=== PATIENT | male | born 1955 | race African-American/Black ===

== ENCOUNTER 2016-10-23 10:57 | Observation (INO) | payer OTHER ==
[2016-10-23] MEDS ORDERED: NITROGLYCERIN OINT 1 INCH/GM PACKET TOPICAL STA (11:00)
[2016-10-23] MEDS ORDERED: NITROGLYCERIN SL TABS 0.4 MG TAB SUBLINGUAL STA (11:00)
[2016-10-23] MEDS ORDERED: LORazepam 2 MG/ML SYRINGE IV STA (11:03)
--- NOTE | 2016-10-23 11:03 | ED ---
General Adult HPI - General Stated complaint: Chest Pain Time Seen by Provider: 10/23/16 10:57 Source: RN notes reviewed - History of Present Illness Initial comments: This is a 61-year-old male who presents to the emergency department with past medical history significant for an WI as well as high blood pressure and high cholesterol. Patient denies smoking. Patient states he does smoke marijuana however. Patient comes in today stating he has been vomiting since but this morning he started having chest pain which radiates across the left side of his chest and he short of breath. Patient states she still is nauseated. Patient denies any diarrhea Patient denies fever or cough. Patient states he's had no headache denies numbness weakness patient denies any lightheadedness dizziness or near syncopal episode - Related Data Home Medications Medication Instructions Recorded Confirmed Albuterol Sulfate [Proventil Hfa] 1 - 2 puff INHALATION RT-QID PRN 10/23/1609/10 Ascorbic Acid [Vitamin C] 500 mg PO DAILY 10/23/16 10/23/16 Ibuprofen [Motrin] 600 mg PO Q6HR PRN 10/23/16 10/23/16 Multivitamins, Thera [Multivitamin] 1 tab PO DAILY 10/23/16 10/23/16 Allergies Allergy/AdvReac Type Severity Reaction Status Date / Time aspirin Allergy Rash/Hives Verified 10/23/16 11:57 Review of Systems ROS Statement: Those systems with pertinent positive or pertinent negative responses have been documented in the HPI. ROS Other: All systems not noted in ROS Statement are negative. General Exam - General Exam Comments Initial Comments: GENERAL: Patient is well-developed and well-nourished. Patient is nontoxic and well- hydrated and is in mild distress. ENT: Neck is soft and supple. No significant lymphadenopathy is noted. Oropharynx is clear. Moist mucous membranes. Neck has full range of motion without eliciting any pain. EYES: The sclera were anicteric and conjunctiva were pink and moist. Extraocular movements were intact and pupils were equal round and reactive to light. Eyelids were unremarkable. PULMONARY: Unlabored respirations. Good breath sounds bilaterally. No audible rales rhonchi or wheezing was noted. CARDIOVASCULAR: There is a regular rate and rhythm without any murmurs gallops or rubs. ABDOMEN: Soft and nontender with normal bowel sounds. No palpable organomegaly was noted. There is no palpable pulsatile mass. SKIN: Skin is clear with no lesions or rashes and otherwise unremarkable. NEUROLOGIC: Patient is alert and oriented x3. Cranial nerves II through XII are grossly intact. Motor and sensory are also intact. Normal speech, volume and content. Symmetrical smile. MUSCULOSKELETAL: Normal extremities with adequate strength and full range of motion. No lower extremity swelling or edema. No calf tenderness. LYMPHATICS: No significant lymphadenopathy is noted PSYCHIATRIC: Normal psychiatric evaluation. Normal interpersonal interactions appears functionally intact in deals appropriately with others. Patient is very anxious Course Vital Signs 10/23/16 10/23/16 10/23/16 11:20 12:18 13:09 Temperature 99.1 F 97.7 F 98.6 F Pulse Rate 98 102 H 94 Respiratory 34 H 20 20 Rate Blood Pressure 159/92 118/66 110/72 O2 Sat by Pulse 100 98 97 Oximetry Medical Decision Making - Medical Decision Making EKG shows sinus tachycardia at 113 bpm NH interval is 130 QRS 78 QT interval 342 QTC is 469. Patient's EKG shows no ST segment elevation or depression or T- wave abdomen is noted. Chest x-ray is normal. Patient states his pain is relieved and he feels considerably better. Because the patient's risk factors and previous WI and the fact that this seemed similar to his previous WI. I started the patient heparin. I admitted the patient. I spoke with Dr. Franco he agreed to admit the patient I wrote admitting orders. I consult cardiology. - Lab Data Result diagrams: 10/23/16 11:28 10/23/16 11:28 Lab Results 10/23/16 10/23/16 10/23/16 Range/Units 11:28 11:28 11:28 WBC (3.8-10.6) k/uL RBC (4.30-5.90) m/uL Hgb (13.0-17.5) gm/dL Hct (39.0-53.0) % MCV (80.0-100.0) fL MCH (25.0-35.0) pg MCHC (31.0-37.0) g/dL RDW (11.5-15.5) % Plt Count (150-450) k/uL Neutrophils % % Lymphocytes % % Monocytes % % Eosinophils % % Basophils % % Neutrophils # (1.3-7.7) k/uL Lymphocytes # (1.0-4.8) k/uL Monocytes # (0-1.0) k/uL Eosinophils # (0-0.7) k/uL Basophils # (0-0.2) k/uL Hypochromasia PT 10.7 (9.0-12.0) sec INR 1.1 (<1.1) APTT 23.7 (22.0-30.0) sec Sodium 141 (137-145) mmol/L Potassium 4.1 (3.5-5.1) mmol/L Chloride 102 (98-107) mmol/L Carbon Dioxide 19 L (22-30) mmol/L Anion Gap 20 mmol/L BUN 23 H (9-20) mg/dL Creatinine 2.12 H (0.66-1.25) mg/dL Est GFR (MDRD) Af Amer 38 (>60 ml/min/1.73 sqM) Est GFR (MDRD) Non-Af 32 (>60 ml/min/1.73 sqM) Glucose 133 H (74-99) mg/dL Calcium 9.4 (8.4-10.2) mg/dL Magnesium 2.1 (1.6-2.3) mg/dL Total Bilirubin 0.8 (0.2-1.3) mg/dL AST 57 (17-59) U/L ALT 44 (21-72) U/L Alkaline Phosphatase 78 (38-126) U/L Total Creatine Kinase 1219 H (55-170) U/L CK-MB (CK-2) 2.4 (0.0-2.4) ng/mL CK-MB (CK-2) Rel Index 0.2 Troponin I 0.023 (0.000-0.034) ng/mL Total Protein 8.1 (6.3-8.2) g/dL Albumin 4.5 (3.5-5.0) g/dL 10/23/16 Range/Units 11:28 WBC 8.0 (3.8-10.6) k/uL RBC 5.68 (4.30-5.90) m/uL Hgb 13.6 (13.0-17.5) gm/dL Hct 44.2 (39.0-53.0) % MCV 77.8 L (80.0-100.0) fL MCH 23.9 L (25.0-35.0) pg MCHC 30.7 L (31.0-37.0) g/dL RDW 15.4 (11.5-15.5) % Plt Count 170 (150-450) k/uL Neutrophils % 43 % Lymphocytes % 48 % Monocytes % 6 % Eosinophils % 0 % Basophils % 0 % Neutrophils # 3.5 (1.3-7.7) k/uL Lymphocytes # 3.8 (1.0-4.8) k/uL Monocytes # 0.5 (0-1.0) k/uL Eosinophils # 0.0 (0-0.7) k/uL Basophils # 0.0 (0-0.2) k/uL Hypochromasia Slight PT (9.0-12.0) sec INR (<1.1) APTT (22.0-30.0) sec Sodium (137-145) mmol/L Potassium (3.5-5.1) mmol/L Chloride (98-107) mmol/L Carbon Dioxide (22-30) mmol/L Anion Gap mmol/L BUN (9-20) mg/dL Creatinine (0.66-1.25) mg/dL Est GFR (MDRD) Af Amer (>60 ml/min/1.73 sqM) Est GFR (MDRD) Non-Af (>60 ml/min/1.73 sqM) Glucose (74-99) mg/dL Calcium (8.4-10.2) mg/dL Magnesium (1.6-2.3) mg/dL Total Bilirubin (0.2-1.3) mg/dL AST (17-59) U/L ALT (21-72) U/L Alkaline Phosphatase (38-126) U/L Total Creatine Kinase (55-170) U/L CK-MB (CK-2) (0.0-2.4) ng/mL CK-MB (CK-2) Rel Index Troponin I (0.000-0.034) ng/mL Total Protein (6.3-8.2) g/dL Albumin (3.5-5.0) g/dL Critical Care Time Critical Care Time: Yes Total Critical Care Time: 35 Disposition Clinical Impression: Unstable angina pectoris, Gastroenteritis Disposition: ADMITTED IP TO THIS HOSP Referrals: None,Stated [Primary Care Provider] - 1-2 days Time of Disposition: 13:25
[2016-10-23 11:34] LABS: Basophils % (A) 0 %; CH 24.1; CHCM 31.2; Eosinophils % (A) 0 %; HCT 44.2 % (39.0-53.0); HDW 2.94; HGB 13.6 gm/dL (13.0-17.5); Hypochromasia Slight; Luc # (Auto) 0.24; Luc % (Auto) 3; Lymphocytes # (A) 3.8 k/uL (1.0-4.8); Lymphocytes % (A) 48 %; MCH 23.9 pg (25.0-35.0); MCHC 30.7 g/dL (31.0-37.0); MCV 77.8 fL (80.0-100.0); Mean Platelet Volume 7.2; Monocytes # (A) 0.5 k/uL (0-1.0); Monocytes % (A) 6 %; Neutrophils # (A) 3.5 k/uL (1.3-7.7); Neutrophils % (A) 43 %; RBC 5.68 m/uL (4.30-5.90); RDW 15.4 % (11.5-15.5); WBC (Perox) 7.94
[2016-10-23 11:45] LABS: Calcium 9.4 mg/dL (8.4-10.2); Magnesium 2.1 mg/dL (1.6-2.3); Potassium 4.1 mmol/L (3.5-5.1); Total Bilirubin 0.8 mg/dL (0.2-1.3); Total Protein 8.1 g/dL (6.3-8.2)
[2016-10-23 11:46] LABS: INR 1.1 (<1.1); Partial Thromboplastin Time 23.7 sec (22.0-30.0); Prothrombin Time 10.7 sec (9.0-12.0)
--- NOTE | 2016-10-23 11:58 | XR ---
EXAMINATION TYPE: XR chest 2V DATE OF EXAM: 10/23/2016 11:53 AM COMPARISON: 02/09/2012 HISTORY: 61-year-old male with chest pain TECHNIQUE: AP and lateral views FINDINGS: Heart appears borderline enlarged, likely somewhat accentuated by low lung volumes. Vascular markings are crowded and probably magnified due to large patient body habitus. There is some patchy right bas ilar opacity. No pleural effusion. IMPRESSION: Hypoventilatory changes and some patchy right basilar atelectasis or early infiltrate.
[2016-10-23 12:11] LABS: Creatine Kinase MB 2.4 ng/mL (0.0-2.4); Troponin I 0.023 ng/mL (0.000-0.034)
[2016-10-23] MEDS ORDERED: HEPARIN SODIUM,PORCINE 5,000 UNIT/ML 1 ML VIAL IV ONE (13:23)
[2016-10-23] MEDS ORDERED: NITROGLYCERIN SL TABS 0.4 MG TAB SUBLINGUAL PRN (13:25)
[2016-10-23] MEDS ORDERED: ONDANSETRON 4 MG/2 ML VIAL IVP PRN (13:26)
[2016-10-23] MEDS ORDERED: HEPARIN SODIUM,PORCINE/D5W PMX 25,000 UNIT in DEXTROSE/WATER 1 500ML.BAG IV SCH (13:30)
[2016-10-23] MEDS ORDERED: SODIUM CHLORIDE 0.9% 1,000 ML IV STA (16:11)
[2016-10-23] MEDS ORDERED: methylPREDNISolone SOD SUCCI 125 MG/2 ML VIAL IV STA (16:11)
--- NOTE | 2016-10-23 16:19 | P.HPIM ---
History of Present Illness H&P Date: 10/23/16 Chief Complaint: Chest pressure 61-year-old gentleman with history of ongoing tobacco use comes in the hospital with acute onset left-sided chest pressure. Patient has not been feeling well for the last 5-6 days with nausea vomiting and watery diarrhea. Patient has also had a cough that has been nonproductive in nature. Patient recently quit smoking 4 days ago. 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 Patient came in to the ER was noted to have sinus tachycardia without any ST elevations. Patient however improved with the nitro patch. Oddly patient states that his pain is exacerbated with movement of his left arm and cough. In the time of examination patient states that his chest pain is almost resolved however pressure on that area down his left fifth rib in the anterior axillary line does bring back pain. Patient was noted to have a creatinine of 2.12 denies having any history of chronic kidney disease. Also noted to have a CK elevation. Review of Systems All systems: negative (Noted in HPI) Past Medical History Past Medical History: Asthma, CVA/TIA, Myocardial Infarction ([place]), Seizure Disorder Additional Past Medical History / Comment(s): last seizure 5 years ago(2011), tia 2013, sinus /seasonal allergies. pt stated his normal wt has been 262/ current wt 237 Last Myocardial Infarction Date:: [id number]" History of Any Multi-Drug Resistant Organisms: None Reported Past Surgical History: Heart Catheterization, Orthopedic Surgery Additional Past Surgical History / Comment(s): sx lazaro eyes d/t chemical klein( 2003), colonoscopy, back sx-fusion, partial amp 2 fingers rt hand(factory machine accident) Additional Past Anesthesia/Blood Transfusion Reaction / Comment(s): clauterphobia Past Psychological History: No Psychological Hx Reported Additional Psychological History / Comment(s): pt's brother 2 days ago ([place]) has some saddness over this but no thoughts of harming self. pt lives with his girl friend, is independant no assitive devices or outside services. works detailing cars. Smoking Status: Former smoker Past Alcohol Use History: Occasional Additional Past Alcohol Use History / Comment(s): started smoking at age 13 smoked 1/2-1 ppd. quit 2 days ago(10-21-16) Past Drug Use History: Marijuana - Past Family History Father Family Medical History: Myocardial Infarction ([place]) Additional Family Medical History / Comment(s): at ge 79-[place] Mother Family Medical History: Myocardial Infarction ([place]) Additional Family Medical History / Comment(s): in her 80's from [place] Brother(s) Family Medical History: Myocardial Infarction ([place]) Additional Family Medical History / Comment(s): 2 weeks ago at age 55 from [place]. had a pacer/aicd Medications and Allergies Home Medications Medication Instructions Recorded Confirmed Type Albuterol Sulfate [Proventil Hfa] 1 - 2 puff INHALATION RT-QID PRN 10/23/1609/10 History Ascorbic Acid [Vitamin C] 500 mg PO DAILY 10/23/16 10/23/16 History Ibuprofen [Motrin] 600 mg PO Q6HR PRN 10/23/16 10/23/16 History Multivitamins, Thera [Multivitamin] 1 tab PO DAILY 10/23/16 10/23/16 History Allergies Allergy/AdvReac Type Severity Reaction Status Date / Time aspirin Allergy Rash/Hives Verified 10/23/16 11:57 Physical Exam Vitals: Vital Signs Temp Pulse Pulse Resp BP BP Pulse Ox 10/23/16 15:15 20 10/23/16 14:45 98.2 F 84 18 136/78 97 10/23/16 14:27 97.9 F 82 20 114/68 95 10/23/16 13:49 98.2 F 81 20 106/68 99 Intake and Output 10/23/16 10/23/16 10/23/16 06:59 14:59 22:59 Other: Voiding Method Toilet Weight 107.6 kg Patient Weight 10/24/16 06:59 Weight 107.6 kg Physical exam Gen. appearance oriented 3 in no distress Neck is supple no JVD Lungs good air entry clear to auscultation no rhonchi or wheezing however does exacerbate coughing Heart S1-S2 heard regular rate and rhythm no murmurs appreciated Reproducible pain in the fifth to sixth intercostal space on the anterior axillary line also exacerbated with rotation of the arm Abdomen is soft nontender no organomegaly bowel sounds are intact Neurologically cranial nerves II-12 grossly intact no focal motor or sensory deficits noted Skin no abnormalities appreciated Results CBC & Chem 7: 10/23/16 11:28 10/23/16 11:28 Assessment and Plan Plan: #1 atypical chest pain likely musculoskeletal however rule out ACS #2 acute kidney injury unknown etiology #3 viral gastroenteritis likely viral prodrome with upper respiratory symptoms as well #4 ongoing tobacco use likely has underlying COPD #5 rhabdomyolysis #6 sinus tachycardia #7 non-anion gap metabolic acidosis Plan A d-dimer will be done. The fluid resuscitation with 75 mL per hour. Patient be given 1 dose of Solu- Medrol 125 mg. Cardiology consultation will be obtained. If patient's heart rate is not fluid responsive a beta jerrica would be appropriate. repeat labs in the a.m. The diarrhea if it's not infectious in nature loperamide can be started.
[2016-10-23] MEDS: NITROGLYCERIN OINT 1 INCH/GM PACKET TOPICAL SCH ×2 (18:01→23:44)
[2016-10-23 18:24] LABS: Creatine Kinase MB 1.9 ng/mL (0.0-2.4); Troponin I 0.015 ng/mL (0.000-0.034)
[2016-10-23] MEDS: ALBUTEROL NEBULIZED 2.5 MG/3 ML INHALATION SCH (20:00)
[2016-10-23 20:35] LABS: Appearance,Urine Clear (Clear); Bacteria,Urine Rare /hpf; Bilirubin,Urine Negative (Negative); Glucose,Urine (UA) Negative (Negative); Ketones,Urine Negative (Negative); Leukocyte Esterase,Urine Negative (Negative); Mucus,Urine Rare /hpf; Nitrite,Urine Negative (Negative); PH, Urine 5.5 (5.0-8.0); Particle Count 2953; Protein,Urine Trace (Negative); RBC,Urine 2 /hpf (0-5); Specific Gravity,Urine 1.012 (1.001-1.035); Squamous Epithelial Cell,Urine <1 /hpf (0-4); UA Billing (MACRO vs. MICRO) MICRO; Urobilinogen,Urine <2.0 mg/dL (<2.0); WBC,Urine 1 /hpf (0-5)
--- NOTE | 2016-10-23 22:49 | CONS ---
DATE OF CONSULTATION: Mr. Herring is a 61-year-old male who does not see a physician on a regular basis who presented with symptoms of chest discomfort. He has been having a cough and dyspnea for the last a few days. Every time he coughs he has chest discomfort. Because of the worsening symptoms, he came into the emergency room and subsequently was admitted. Patient has underwent cardiac catheterization in 2010 that showed no evidence of obstructive coronary artery disease and at that time his left ventricular systolic function revealed a preserved left ventricular size and systolic function. Patient has some palpitation. No syncope. No clear PND, orthopnea. No peripheral edema. He used to smoke on a regular basis and just stopped few days ago. He takes no medication at home. He denies any history of passing of hypertension, hyperlipidemia, or diabetes. Medications at home are none. REVIEW OF SYSTEMS: RESPIRATORY SYSTEM: He has the cough, productive recently. He has dyspnea on exertion. GI system: No recent GI bleeding. No peptic ulcer disease. system: No dysuria or hematuria. Nervous system: Prior history of seizure according to him. SOCIAL HISTORY: Social alcohol intake. Drinks caffeine and smokes as noted. PHYSICAL EXAMINATION: A 61-year-old male, alert, oriented, in no apparent distress. Blood pressure 136/70 with a heart in the 80s. HEAD: Normocephalic. EYES: Sclerae anicteric. NECK: Good upstroke. No bruit. No jugular venous distention. LUNGS: Clear to auscultation. HEART: Regular rate and rhythm. S1, S2, no S3, no rub. ABDOMEN: Soft, nontender, positive bowel sounds. No organomegaly. EXTREMITIES: No edema. Intact distal pulses. Lab data revealed a hemoglobin of 13.6. BUN and creatinine 23 and 2.12. Troponin 0.023 with CK of 1219. EKG revealed a sinus mechanism, rate of 113, left axis deviation. No acute changes. Chest x-ray shows patchy right basilar atelectasis or early infiltrate. IMPRESSION: 1. Chest discomfort, atypical for ischemic heart disease; appears to be musculoskeletal in etiology of related to the lung infection. 2. Renal failure of unknown duration. 3. Chronic tobacco use. RECOMMENDATIONS: From the cardiac standpoint, I will obtain echocardiogram with Doppler. I see no evidence of active ischemic heart disease. If the rest of the enzymes are normal, then no further cardiac work-up will be needed. Thank you for this consult. We will follow with you.
[2016-10-24 00:09] LABS: Creatine Kinase MB 1.8 ng/mL (0.0-2.4); Troponin I 0.015 ng/mL (0.000-0.034)
[2016-10-24 05:58] LABS: Basophils % (A) 1 %; CH 24.1; CHCM 30.6; Eosinophils % (A) 0 %; HCT 40.9 % (39.0-53.0); HDW 2.92; HGB 12.6 gm/dL (13.0-17.5); Hypochromasia Moderate; Luc # (Auto) 0.11; Luc % (Auto) 3; Lymphocytes # (A) 1.3 k/uL (1.0-4.8); Lymphocytes % (A) 35 %; MCH 24.5 pg (25.0-35.0); MCHC 30.9 g/dL (31.0-37.0); MCV 79.4 fL (80.0-100.0); Mean Platelet Volume 7.9; Monocytes # (A) 0.1 k/uL (0-1.0); Monocytes % (A) 3 %; Neutrophils # (A) 2.2 k/uL (1.3-7.7); Neutrophils % (A) 58 %; RBC 5.15 m/uL (4.30-5.90); RDW 15.6 % (11.5-15.5); WBC 3.8 k/uL (3.8-10.6); WBC (Perox) 3.69
[2016-10-24 06:07] LABS: ALT 56 U/L (21-72); AST 50 U/L (17-59); Alkaline Phosphatase 60 U/L (38-126); Anion Gap 12 mmol/L; Bilirubin, Delta 0.2 mg/dL (0.0-0.2); Blood Urea Nitrogen 21 mg/dL (9-20); Calcium 9.4 mg/dL (8.4-10.2); Carbon Dioxide 24 mmol/L (22-30); Chloride 108 mmol/L (98-107); Cholesterol 119 mg/dL (<200); Creatine Kinase 995 U/L (55-170); Glucose 142 mg/dL (74-99); Non-African American GFR(MDRD) >60 (>60 ml/min/1.73 sqM); Potassium 5.3 mmol/L (3.5-5.1); Sodium 144 mmol/L (137-145); Total Bilirubin 0.4 mg/dL (0.2-1.3); Total Protein 7.2 g/dL (6.3-8.2); Triglycerides 89 mg/dL (<150)
[2016-10-24 06:08] LABS: HDL Cholesterol 38 mg/dL (40-60)
[2016-10-24] MEDS: NITROGLYCERIN OINT 1 INCH/GM PACKET TOPICAL SCH (06:20)
[2016-10-24] MEDS: ALBUTEROL NEBULIZED 2.5 MG/3 ML INHALATION SCH ×2 (08:15→12:30)
--- NOTE | 2016-10-24 08:57 | PN ---
Mr. Herring is a 61-year-old male with a history of chronic tobacco use, who presented with symptoms of chest discomfort, worse with deep breathing and coughing. He is feeling better today. His breathing is better. He denies symptoms of chest pain. He denies any dizziness, palpitation. He denies any nausea or vomiting. He continues to be at this time on IV heparin, aspirin. He received methylprednisolone. PHYSICAL EXAMINATION: Blood pressure running in the 150s and 170s with a heart rate in the 80s. Lungs with mild decrease in breath sounds. No wheezes. HEART: Regular rate and rhythm. S1, S2, no S3, no rub. ABDOMEN: Soft, nontender. EXTREMITIES: No edema. Lab data revealed troponin 0.015, cholesterol 119, LDL of 63. BUN and creatinine of 21 and 1.1. Potassium 5.3. Hemoglobin of 12.6. IMPRESSION: 1. Chest discomfort, atypical for ischemic heart disease; appears to be related to upper respiratory infection. 2. Hypertension. 3. Chronic tobacco use. RECOMMENDATION: I will add to his regimen amlodipine 5 mg daily to optimize his blood pressure control. Will review the results of his echocardiogram. From the cardiac standpoint, no further cardiac work-up will be needed at this time. He will follow up on with his primary care physician. Will see him on as-needed basis.
[2016-10-24] MEDS ORDERED: amLODIPine 5 MG TAB PO SCH (09:00)
[2016-10-24] MEDS ORDERED: ASPIRIN 325 MG TAB PO SCH (09:00)
[2016-10-24 11:19] VITALS: BP 153/78; TEMP 98.2
--- NOTE | 2016-10-24 11:36 | ECHOF ---
Referral Reason:cp MEASUREMENTS -------- HEIGHT: 185.4 cm WEIGHT: 107.5 kg BP: 152/77 RVIDd: 3.3 cm (< 3.3) IVSd: 1.3 cm (0.6 - 1.1) LVIDd: 4.9 cm (3.9 - 5.3) LVPWd: 1.3 cm (0.6 - 1.1) IVSs: 1.6 cm LVIDs: 2.8 cm LVPWs: 2.1 cm LA Diam: 3.6 cm (2.7 - 3.8) LAESV Index (A-L): 20.60 ml/m Ao Diam: 3.4 cm (2.0 - 3.7) AV Cusp: 2.0 cm (1.5 - 2.6) MV EXCURSION: 17.007 mm (> 18.000) MV EF SLOPE: 84 mm/s (70 - 150) EPSS: 0.9 cm MV E Alexander: 0.96 m/s MV DecT: 184 ms MV A Alexander: 0.77 m/s MV E/A Ratio: 1.25 FINDINGS -------- Sinus rhythm. This was a technically good study. The left ventricular size is normal. There is mild concentric left ventricular hypertrophy. Overall left ventricular systolic function is normal with, an EF between 60 - 65 %. The right ventricle is mildly enlarged. Normal LA size by volume 22+/-6 ml/m2. The right atrium is normal in size. Aortic valve is trileaflet and is mildly thickened. Mild mitral annular calcification present. The tricuspid valve appears structurally normal. Trace/mild (physiologic) pulmonic regurgitation. The aortic root size is normal. Normal inferior vena cava with normal inspiratory collapse consistent with estimated right atrial pressure of 5 mmHg. There is no pericardial effusion. CONCLUSIONS -------- 1. Sinus rhythm. 2. The tricuspid valve appears structurally normal. 3. Trace/mild (physiologic) pulmonic regurgitation. 4. The aortic root size is normal. 5. Normal inferior vena cava with normal inspiratory collapse consistent with estimated right atrial pressure of 5 mmHg. 6. There is no pericardial effusion. 7. This was a technically good study. 8. The left ventricular size is normal. 9. There is mild concentric left ventricular hypertrophy. 10. Overall left ventricular systolic function is normal with, an EF between 60 - 65 %. 11. The right ventricle is mildly enlarged. 12. Normal LA size by volume 22+/-6 ml/m2. 13. Aortic valve is trileaflet and is mildly thickened. 14. Mild mitral annular calcification present. ELECTRICIAN REFINERY: Myesha Reeves RDCS
[2016-10-24 13:03] VITALS: PULSE 73; RESP 18
--- NOTE | 2016-10-24 15:08 | P.DS ---
Providers Date of admission: 10/23/16 13:26 Attending physician: Sruthi Franco Primary care physician: Stated None Hospital Course: 61-year-old gentleman with history of ongoing tobacco use comes in the hospital with acute onset left-sided chest pressure. Patient has not been feeling well for the last 5-6 days with nausea vomiting and watery diarrhea. Patient has also had a cough that has been nonproductive in nature. Patient recently quit smoking 4 days ago. 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 Patient came in to the ER was noted to have sinus tachycardia without any ST elevations. Patient however improved with the nitro patch. Oddly patient states that his pain is exacerbated with movement of his left arm and cough. In the time of examination patient states that his chest pain is almost resolved however pressure on that area down his left fifth rib in the anterior axillary line does bring back pain. Patient was noted to have a creatinine of 2.12 denies having any history of chronic kidney disease. Also noted to have a CK elevation. Day of discharge Patient denied having any diarrhea. States his breathing is significantly improved. Patient is able to move his arm states that the steroids have helped as chest pain. Patient also underwent cardiac evaluation and was cleared. Neck is supple no JVD Lungs good air entry clear to auscultation no rhonchi or wheezing however does exacerbate coughing Heart S1-S2 heard regular rate and rhythm no murmurs appreciated Reproducible pain in the fifth to sixth intercostal space on the anterior axillary line also exacerbated with rotation of the arm Abdomen is soft nontender no organomegaly bowel sounds are intact Neurologically cranial nerves II-12 grossly intact no focal motor or sensory deficits noted Skin no abnormalities appreciated Assessment and Plan Plan: #1 atypical chest pain likely musculoskeletal however rule out ACS #2 acute kidney injury unknown etiology #3 viral gastroenteritis likely viral prodrome with upper respiratory symptoms as well #4 ongoing tobacco use likely has underlying COPD #5 rhabdomyolysis #6 sinus tachycardia #7 non-anion gap metabolic acidosis #8 new diagnosis of essential hypertension will be started on amlodipine 5 mg. Medrol Dosepak for viral URI. He shouldn't will be referred to a PCP Dr. Clarke Plan - Discharge Summary New Discharge Prescriptions: amLODIPine [Norvasc] 5 mg PO DAILY #30 tab methylPREDNISolone [Medrol Dose Pack] 4 mg PO DIRECTED #1 pack Discharge Medication List Albuterol Sulfate [Proventil Hfa] 1 - 2 puff INHALATION RT-QID PRN 10/23/16 [ History] Ascorbic Acid [Vitamin C] 500 mg PO DAILY 10/23/16 [History] Ibuprofen [Motrin] 600 mg PO Q6HR PRN 10/23/16 [History] Multivitamins, Thera [Multivitamin] 1 tab PO DAILY 10/23/16 [History] amLODIPine [Norvasc] 5 mg PO DAILY #30 tab 10/24/16 [Rx] methylPREDNISolone [Medrol Dose Pack] 4 mg PO DIRECTED #1 pack 10/24/16 [Rx] Follow up Appointment(s)/Referral(s): Gabriela Dave MD [STAFF PHYSICIAN] - 1 Week Jabari Clarke MD [REFERRING] - 1 Week None,Stated [Primary Care Provider] - 1-2 days Discharge Disposition: HOME SELF-CARE
[2016-10-24 15:11] VITALS: BMI 31.3
== END 2016-10-24 16:13 | disposition home or self-care (01) ==
LOC: EC 10:57 → 3OBS 13:26
PROVIDERS: ADMIT Internal Medicine; ATTEND Internal Medicine
DX: R07.89 Other chest pain (principal); N17.9 Acute kidney failure, unspecified; A08.4 Viral intestinal infection, unspecified; E87.2 Acidosis; F12.90 Cannabis use, unspecified, uncomplicated; I10 Essential (primary) hypertension; I25.2 Old myocardial infarction; J45.909 Unspecified asthma, uncomplicated; M62.82 Rhabdomyolysis; Z72.0 Tobacco use; Z86.73 Personal history of transient ischemic attack (TIA), and cerebral infarction without residual deficits; R00.0 Tachycardia, unspecified; M54.9 Dorsalgia, unspecified; J06.9 Acute upper respiratory infection, unspecified; Z79.899 Other long term (current) drug therapy; Z88.6 Allergy status to analgesic agent
CPT/HCPCS: 36415; 94640 ×3; 93005; 93306; 85379; 80061; 80053 ×2; 82248; 83036; 82550 ×2; 82553; 83735; 84484; 85025 ×2; 85610; 85730 ×2; 81001; 80306; 71020; 99291; 96365; 96375; 96376; G0378 ×2; J2060; J1644 ×2; J2930; 96361; 96366

== ENCOUNTER → 2018-02-16 | Outpatient (CLI) | payer OTHER ==
--- NOTE | 2018-02-16 08:27 | US ---
EXAMINATION TYPE: US kidneys/renal and bladder DATE OF EXAM: 02/16/2018 COMPARISON: NONE CLINICAL HISTORY: R10.9 right flank pain. Right flank pain for 1 month EXAM MEASUREMENTS: Right Kidney: 12.4 x 5.2 x 5.8 cm Left Kidney: 10.6 x 5.8 x 4.7 cm Right Kidney: complex anechoic area = 3.8 x 2.9 x 2.8cm appearing to have vascularity Left Kidney: no evidence of hydronephrosis or mass Bladder: appears wnl Bilateral Jets seen: yes IMPRESSION: 1. Complex cyst within the superior pole right kidney with vascularity within the central septation. Additional workup with contrast CT is recommended.
== END | disposition home or self-care (01) ==
LOC: RADUSWWP 07:07
PROVIDERS: ATTEND Internal Medicine
DX: N28.1 Cyst of kidney, acquired (principal)
CPT/HCPCS: 76770

== ENCOUNTER → 2018-02-20 | Outpatient (CLI) | payer OTHER ==
--- NOTE | 2018-02-20 14:50 | CT ---
EXAMINATION TYPE: CT abdomen pelvis wo con DATE OF EXAM: 02/20/2018 HISTORY: Generalized abdominal pain; right flank pain. Abnormal ultrasound. CT DLP: 954.20 mGycm. Automated Exposure Control for Dose Reduction was Utilized. TECHNIQUE: CT scan of the abdomen and pelvis is performed without oral or IV contrast. COMPARISON: CT abdomen and pelvis June 27, 2010. Renal ultrasound from 4 days ago. FINDINGS: Within the limitations of a non-contrast study, the following observations are made. LUNG BASES: There is prominent coronary artery calcification in the LAD distribution is additional mi ld coronary artery calcification in the left circumflex and RCA distribution. LIVER/GB: Liver is diffusely low dense consistent with fatty infiltration which correlates with recen t ultrasound showing heterogeneous hyperechoic appearance in visualized portions. PANCREAS: No significant abnormality is seen. SPLEEN: No significant abnormality is seen. ADRENALS: No significant abnormality is seen. KIDNEYS: Correlating with recent ultrasound new from 2009 CT there is oval anechoic 2.6 x 2.5 cm lesi on felt to reflect simple cyst upper pole level right kidney. No suspicious nodularity or septation i s seen on noncontrast CT. There may be 2 adjacent lesions on coronal image 64 or lobulated extension. BOWEL: No significant abnormality is seen. GENITAL ORGANS: A few scattered pelvic phleboliths are present. LYMPH NODES: No greater than 1cm abdominal or pelvic lymph nodes are appreciated. OSSEOUS STRUCTURES: There is spurring in the thoracic spine. There is moderate to advanced disc space narrowing with vacuum disc phenomenon L4-L5 level with posterior rim calcified disc herniation. OTHER: There is mild to moderate calcified plaque of aorta extending into branch vessels. There is ti ny fat-containing left periumbilical hernia axial image 59 IMPRESSION: Corresponding to ultrasound there is fairly simple appearing slightly lobulated cyst or c ystic lesion upper pole level right kidney as detailed above. Because lesion is new from 2009 CT and dynamic postcontrast imaging was not performed I would advise at minimum short-term imaging follow-up in 3-6 months time to reassess due to the linear vascularity identified on ultrasound if dynamic kyle al protocol contrast-enhanced CT or MRI imaging cannot be performed.
== END | disposition home or self-care (01) ==
LOC: RADCTMAIN 13:41
PROVIDERS: ATTEND Internal Medicine
DX: R10.84 Generalized abdominal pain (principal)
CPT/HCPCS: 74176